=== PATIENT | female | born 1955 | race Caucasian/White ===

== ENCOUNTER 2017-03-08 05:58 | Day surgery (SDC) | payer BC ==
[2017-03-08] MEDS ORDERED: Midazolam 1 MG/ML 2 ML SDV IV ONE ×6 (05:59→07:11)
[2017-03-08] MEDS ORDERED: fentaNYL 100 MCG/2 ML SDV IV ONE ×5 (05:59→07:18)
[2017-03-08] MEDS ORDERED: Sodium Chloride 0.9% 10 ML Syringe FLUSH PRN (06:00)
[2017-03-08] MEDS ORDERED: Dextrose 5%-0.45% NaCl 1,000 ML IV SCH (06:00)
[2017-03-08] MEDS ORDERED: Midazolam 1 MG/ML 2 ML SDV ONE (06:17)
[2017-03-08] MEDS ORDERED: fentaNYL 100 MCG/2 ML SDV ONE (06:18)
--- NOTE | 2017-03-08 12:01 | OR ---
DATE: 03/08/2017 PROCEDURE: Total colonoscopy. INSTRUMENT USED: CF-H180 AL Olympus video colonoscope. PREMEDICATIONS: Fentanyl 175 mcg intravenous, Versed 4 mg intravenous. Nasal O2 cannula. The procedure was done under pulse oximetry, BP recording, and cardiac tech. INDICATIONS: Screening colonoscopic examination is done for detection of any polypoid lesions and removal, endoscopic hemostasis therapy if needed. DESCRIPTION OF PROCEDURE: Initial rectal exam was unremarkable. Rigid anoscopy was normal. The colonoscope was passed with relative ease up to the ileocecal area. Photographs were taken of the normal-appearing cecum identified by double-bulged ileocecal folds. No bleeding was noted from any of the visualized areas at the commencement of the examination. No stricture. No vascular ectasia. No large isolated ulcerations seen. No evidence of diffuse inflammatory bowel disease in the form of friability, contact bleeding, or ulcerations. No polyp or tumor mass identified. Probing the proximal sides of folds and flexures using adequate distention and clearing of the stool material, withdrawal of the scope was made. Cecum to rectum time over 6 minutes. No bleeding was noted from any of the visualized areas at the completion of examination. IMPRESSION: Normal study. The patient tolerated the procedure well. [facility] /[id number]
--- NOTE | 2017-03-08 13:25 | LETTER ---
03/08/2017 VERONICA Ivey [address], [address] [place] [address] RE: AYANA VARNER : 1955 Dear Ms. Neff: Ms. Bautista Parislori had colonoscopic examination done this morning and she tolerated the procedure well. I herewith send a copy of the endoscopy note and photographs for your review. Thank you. Sincerely, [facility] /[id number]
== END 2017-03-08 09:35 | disposition home or self-care (01) ==
LOC: DL.ENDO 05:58
PROVIDERS: ATTEND Internal Medicine Gastroenterology
DX: Z12.11 Encounter for screening for malignant neoplasm of colon (principal); E66.9 Obesity, unspecified; E11.9 Type 2 diabetes mellitus without complications; E03.9 Hypothyroidism, unspecified; E78.00 Pure hypercholesterolemia, unspecified; Z88.1 Allergy status to other antibiotic agents; Z88.2 Allergy status to sulfonamides; F10.99 Alcohol use, unspecified with unspecified alcohol-induced disorder
CPT/HCPCS: 45378; J2250; J3010; J7042

== ENCOUNTER 2021-11-03 11:02 | Emergency (ER) | payer MEDICARE, BC | END 2021-11-03 14:23 | disposition home or self-care (01) | LOC: DL.ED 11:02 | DX: R42 Dizziness and giddiness (principal); I10 Essential (primary) hypertension; E11.9 Type 2 diabetes mellitus without complications; E03.9 Hypothyroidism, unspecified; Z88.1 Allergy status to other antibiotic agents; Z79.84 Long term (current) use of oral hypoglycemic drugs; Z79.899 Other long term (current) drug therapy | CPT/HCPCS: 36415; 80053; 83735; 84443; 84484; 85025; 93005; 99284-25 ==